=== PATIENT | female | born 1995 | race African-American/Black ===

== ENCOUNTER 2020-06-09 07:57 | Emergency (ER) | payer SELFPAY ==
[2020-06-09] MEDS ORDERED: Acetaminophen 500 MG TAB ONE (08:38)
[2020-06-09 09:02] LABS: #Basophils 0.1 thou/uL (0.0-0.2); #Eosinphils 0.1 thou/uL (0.0-0.7); #Lymphocytes 2.1 thou/uL (1.20-3.40); #Monocytes 0.5 thou/uL (0.11-0.59); #Neutrophils 3.7 thou/uL (1.40-6.50); %Basophils 1.1 % (0.0-1.0); %Eosinophils 1.1 % (0.0-10.0); %Lymphocytes 32.8 % (21.0-51.0); %Monocytes 8.2 % (0.0-10.0); %Neutrophils 56.8 % (42.0-75.0); Hemoglobin 12.3 g/dL (12.0-16.0); Mean Corpuscular HGB CONC 32.6 g/dL (32.0-36.0); Mean Corpuscular Hemoglobin 29.1 pg (27.0-31.0); Mean Corpuscular Volume 89.2 fL (78.0-98.0); Mean Platelet Volume 9.8 fL (7.4-10.4); Platelet Count 215 thou/uL (130-400); RBC Distribution Width 11.5 % (11.5-14.5); Red Blood Cell (RBC) Count 4.22 mill/uL (4.20-5.40); White Blood Cell (WBC) Count 6.5 thou/uL (4.8-10.8)
[2020-06-09 09:22] LABS: Bacteria/HPF None Seen HPF (None Seen); Bilirubin Negative (Negative); Blood, Urine 3+ (Negative); Clarity Clear (Clear); Glucose, Urine (Dipstick) Normal (Negative); Ketone, Urine Negative (Negative); Leukocyte 75 Leu/uL (Negative); Nitrite Negative (Negative); Protein, Urine (Dipstick) Negative (Neg-Trace); Specific Gravity, Urine 1.011 (1.002-1.036); Squamous Epithelial 0-3 HPF (0-3); Urobilinogen Normal mg/dL (Less than 2); pH, Urine 6.5 (5.0-9.0)
--- NOTE | 2020-06-09 09:31 | ULT ---
ULTRASOUND PELVIC DOPPLER DUPLEX: DATE: 06/09/2020 HISTORY: 24-year-old female with first trimester pelvic pain and vaginal bleeding TECHNIQUE: Transabdominal transducer used to visualize intrapelvic contents with grayscale, color-flow, and spec tral analysis. FINDINGS: Intrauterine gestational sac. Yolk sac. Embryonic pole. Hilda-rump length 1.3 cm: 7 weeks 4 days. Embryonic heart rate: 155 bpm. Small crescentic 1.5 x 0.3 cm focus of subchorionic hemorrhage. No free fluid in cul-de-sac. Bilateral ovaries demonstrated, with blood flow. There is probably a 2 cm right ovarian corpus luteal cyst. IMPRESSION: 1) live first trimester intrauterine gestation estimated to be 7 weeks 4 days gestational age. 2) small subchorionic hemorrhage.
== END 2020-06-09 09:57 | disposition home or self-care (01) ==
LOC: ERS 07:57
DX: O20.0 Threatened abortion (principal); O23.41 Unspecified infection of urinary tract in pregnancy, first trimester; Z3A.01 Less than 8 weeks gestation of pregnancy
CPT/HCPCS: 36415; 76856; 81003; 81015; 84702; 85025; 86900; 86901; 93976